=== PATIENT | female | born 1985 | race Two or more races ===

== ENCOUNTER → 2022-01-03 15:39 | Outpatient (BNVA) | payer MEDICAID, SELFPAY | PROVIDERS: Visit Provider Nurse Practitioner Family | DX: G43.009 Migraine without aura, not intractable, without status migrainosus (principal); M79.7 Fibromyalgia | CPT/HCPCS: 99212 ==

== ENCOUNTER → 2022-04-06 11:40 | Outpatient (BNVA) | payer MEDICAID, SELFPAY | PROVIDERS: Visit Provider Nurse Practitioner Family | DX: G43.009 Migraine without aura, not intractable, without status migrainosus (principal); R20.2 Paresthesia of skin; M48.061 Spinal stenosis, lumbar region without neurogenic claudication; G35 Multiple sclerosis; M79.7 Fibromyalgia; M54.50 Low back pain, unspecified | CPT/HCPCS: 99212 ==

== ENCOUNTER → 2022-07-04 10:59 | Outpatient (BNVA) | payer MEDICAID, SELFPAY | PROVIDERS: Visit Provider Nurse Practitioner Family | DX: M48.061 Spinal stenosis, lumbar region without neurogenic claudication (principal); G35 Multiple sclerosis; M79.7 Fibromyalgia ==

== ENCOUNTER 2024-03-25 09:29 | Outpatient (AMB) | payer OTHER, SELFPAY ==
--- NOTE | 2024-03-25 09:46 | MHC.OFFVIS ---
Vital Signs 03/25/24 09:48 Height 5 ft 4 in Weight 237 lb BMI 40.7 Intake Visit Reasons: Follow up Intake Note: Patient presents for follow up. Allergies dimethyl fumarate [From Tecfidera] Allergy (Mild, Verified 03/25/24 09:49) Hives copaxel Allergy (Mild, Uncoded 03/25/24 09:49) Hives Medication List - Last Reconciled 03/25/24 by DUY Up albuterol sulfate 90 mcg/actuation (ProAir HFA) 2 puffs inhalation QID fqaliecvut-ihelvavvoubfy-trkm 50-325-40 mg 1 cap PO Q4H PRN 30 days cladribine(multiple sclerosis) (Mavenclad (10 tablet pack)) 10 mg PO DAILY cladribine(multiple sclerosis) (Mavenclad (10 tablet pack)) 10 mg PO DAILY ergocalciferol (vitamin D2) 1,250 mcg PO QWEEK fremanezumab-vfrm (Ajovy) 225 mg (1.5 mL) subcut ONCE 30 days fremanezumab-vfrm (Ajovy) 675 mg subcut [id number] semaglutide (weight loss) (Wegovy) 0.5 mg subcut QWEEK tramadol 50 mg PO DAILY tramadol 100 mg (2 x 50 mg) PO TID PRN 30 days HPI Comments Details: 39-yr-old female presents for f/u visit of migraine, pain/spasticity in setting of MS. She has been gaining weight. She is now f/b weight management. She started Wegovy 6 wks ago- has not noticed any wt loss, but has nausea and food aversion. She states her TSH levels were elevated so her thyroid tx was adjusted several months ago. She has been dx'd w/ sleep apnea, and is using a CPAP machine. She is still f/b the [facility]- states her MS is stable on her current DMT. She is scheduled for f/u MRI. On review of recent labs through [facility] portal, note is made of h/o anemia, positive TAMARA 1:80. She is most concerned that she continues to have constant pain from her neck down through her whole body. Pt states she never heard from PS&S to have f/u visit. She states her pain and fatigue are limiting her ability to do her daily activities, some days can barely get OOB to go to the bathroom, other days she can get up, but sha can no longer do full shopping trips. Sometimes she can grab things, but other days she needs to use 2 hands to hold a cup. She can have swelling in her neck, arms, ankles. Has RUE muscle twitching. Her whole body is tender to the touch. Her low back pain is increasing as well- sometimes the pain is focal to the low back, other times radiates into the RLE. She is having increased leg spasms and more nocturnal leg cramps at night- since the weight gain. Her right sided weakness varies day to day. She states the Tramadol is not helping at night now- wonders if she needs something stronger. She is now more constipation. Has been having some bladder incontinence- has urge incontinence. Has been referred to urology- appt pending. Pt is having 2-3 milder migraines day per month since starting Ajovy. Now she is able to treat an attack w/ Ibuprofen or Tylenol and lays down x's 1-1.5 hrs. Baseline headache characteristics: a bifrontal and eye pain a/w seeing sparkles at times, photophobia, phonophobia, nausea, activity intolerance. She needs to lay down during the migraine attacks. Previous work-up: L-spine MRI w/o, 04/15/22 at [facility]: Worsened moderate endplate edema with disc degeneration at the L5-S1 level. Broad-based disc bulge with moderate foraminal encroachment mildly distorting the exiting L5 nerve roots, more so on the right side. No central canal stenosis. [facility] Medical History (Updated 03/25/24 @ 10:39 by DUY Up) Anemia Vitamin D deficiency Hypothyroidism Asthma Kidney stones HTN (hypertension) Fibromyalgia Multiple sclerosis Surgical History No pertinent past surgical history Family History Father HTN (hypertension) Kidney disease Arthritis Mother HTN (hypertension) Kidney disease Arthritis Fibromyalgia Social History Alcohol intake: current Alcohol intake frequency: other Patient Tobacco Use Status: Former Tobacco user Cigarettes Per Day: 3 e-Cigarette/Vaping Use: Currently Using Physical Exam Vital Signs: BMI result Body Mass Index 40.7 Const General: cooperative and no acute distress Orientation/consciousness: patient oriented x3 Resp Effort & Inspection: normal respiratory effort and able to speak in complete sentences Neuro Other: BUE MS 5/5, though Right hand grasp weaker than left. RLE 5-/5 LLE MS 5/5 Gait- slightly antalgic General: patient oriented x3 Cranial nerves: Yes CN's II-XII intact bilaterally Cognition (Neuro): normal cognition Deep tendon reflexes (DTR's): Right patellar reflex intensity grade: 2+ and Left patellar reflex intensity grade: 2+ Psych Appearance: grossly normal Mental Status: mental status grossly normal Speech and movement: Normal speech and movement present Affect: normal affect Attitude: cooperative Assessment & Plan Assessment & Plan (1) Migraine without aura: Code(s): G43.009 - Migraine without aura, not intractable, without status migrainosus Category: Medical (2) Neuroforaminal stenosis of lumbar spine: Code(s): M48.061 - Spinal stenosis, lumbar region without neurogenic claudication Category: Medical (3) Cervicalgia: Code(s): M54.2 - Cervicalgia Category: Medical (4) Paresthesia of right upper and lower extremity: Code(s): R20.2 - Paresthesia of skin Category: Medical (5) Multiple sclerosis: Code(s): G35 - Multiple sclerosis Category: Medical Plan For acute migraine treatment: Fioricet prn- pt requests we decrease montlhy quantity to 10 caps/30 days. Sumatriptan 50-100mg at onset of migraine, may repeat in 2 hours, max 4 tabs per week. ? For migraine prevention treatment: Continue Ajovy 225mg qc q month, as pt has had significant reduction in migraine burden w/out adverse effect/ She has previously tried: Gabapentin (d/c'd 03/03/2017), Amitriptyline (caused sleepiness, d/c'd 02/03/17), Topiramate (d/c'd 03/24/17)- all were ineffective. Migraine preventive tx contraindications: All BBs d/t dx of asthma. ? For low back pain w/ RLE paresthesias, neck pain, muscle cramps/spasms, fibromyalgia, body pains, weakness in setting of MS and h/o positive TAMARA.: May continue prn Tramadol 50mg- 2 tabs tid for now. Discussed that pt would better benefit from a more targeted tx of her symptoms, rather than to just change the Tramadol to something stronger . Start Magnesium 400mg qhs. Try taking Baclofen 5-10mg qhs scheduled. Check labs for common etiologies. BUE and BLE EMG/NCS F/u L-spine MRI w/o. Will request consults w/ pain management/systems development manager. Will request evaluation of positive TAMARA by rheumatology. For MS: f/u with [facility] as scheduled. Will follow-up upon review of above and patient to follow-up in clinic in 6 months or sooner prn. Orders: Orders TAMARA Reflex Titer and Pattern Today D64.9 - Anemia, unspecified, E03.9 - Hypothyroidism, unspecified, E55.9 - Vitamin D deficiency, unspecified, G35 - Multiple sclerosis, R20.2 - Paresthesia of skin Vitamin B12 and Folate Today D64.9 - Anemia, unspecified, E03.9 - Hypothyroidism, unspecified, E55.9 - Vitamin D deficiency, unspecified, G35 - Multiple sclerosis, R20.2 - Paresthesia of skin Vitamin D 25-OH (D2 and D3) Today D64.9 - Anemia, unspecified, E03.9 - Hypothyroidism, unspecified, E55.9 - Vitamin D deficiency, unspecified, G35 - Multiple sclerosis, R20.2 - Paresthesia of skin Erythrocyte Sedimentation Rate Today D64.9 - Anemia, unspecified, E03.9 - Hypothyroidism, unspecified, E55.9 - Vitamin D deficiency, unspecified, G35 - Multiple sclerosis, R20.2 - Paresthesia of skin Creatine Kinase Total Today D64.9 - Anemia, unspecified, E03.9 - Hypothyroidism, unspecified, E55.9 - Vitamin D deficiency, unspecified, G35 - Multiple sclerosis, R20.2 - Paresthesia of skin Magnesium Today D64.9 - Anemia, unspecified, E03.9 - Hypothyroidism, unspecified, E55.9 - Vitamin D deficiency, unspecified, G35 - Multiple sclerosis, R20.2 - Paresthesia of skin T4 Thyroxine Today D64.9 - Anemia, unspecified, E03.9 - Hypothyroidism, unspecified, E55.9 - Vitamin D deficiency, unspecified, G35 - Multiple sclerosis, R20.2 - Paresthesia of skin IRON PROFILE Today D64.9 - Anemia, unspecified, E03.9 - Hypothyroidism, unspecified, E55.9 - Vitamin D deficiency, unspecified, G35 - Multiple sclerosis, R20.2 - Paresthesia of skin NE nerve conduction velocity Today G35 - Multiple sclerosis, M48.061 - Spinal stenosis, lumbar region without neurogenic claudication, M54.2 - Cervicalgia, R20.2 - Paresthesia of skin MR lumbar spine wo con Today M48.061 - Spinal stenosis, lumbar region without neurogenic claudication, M54.50 - Low back pain, unspecified, R20.2 - Paresthesia of skin Rheumatoid Factor Today D64.9 - Anemia, unspecified, E03.9 - Hypothyroidism, unspecified, E55.9 - Vitamin D deficiency, unspecified, G35 - Multiple sclerosis, R20.2 - Paresthesia of skin TSH reflex Free T4 Today D64.9 - Anemia, unspecified, E03.9 - Hypothyroidism, unspecified, E55.9 - Vitamin D deficiency, unspecified, G35 - Multiple sclerosis, R20.2 - Paresthesia of skin Comprehensive Met. Panel Today D64.9 - Anemia, unspecified, E03.9 - Hypothyroidism, unspecified, E55.9 - Vitamin D deficiency, unspecified, G35 - Multiple sclerosis, R20.2 - Paresthesia of skin Complete Blood Count Auto Diff Today D64.9 - Anemia, unspecified, E03.9 - Hypothyroidism, unspecified, E55.9 - Vitamin D deficiency, unspecified, G35 - Multiple sclerosis, R20.2 - Paresthesia of skin CRP High Sensitivity Today D64.9 - Anemia, unspecified, E03.9 - Hypothyroidism, unspecified, E55.9 - Vitamin D deficiency, unspecified, G35 - Multiple sclerosis, R20.2 - Paresthesia of skin Homocysteine Today D64.9 - Anemia, unspecified, E03.9 - Hypothyroidism, unspecified, E55.9 - Vitamin D deficiency, unspecified, G35 - Multiple sclerosis, R20.2 - Paresthesia of skin Methylmalonic Acid Today D64.9 - Anemia, unspecified, E03.9 - Hypothyroidism, unspecified, E55.9 - Vitamin D deficiency, unspecified, G35 - Multiple sclerosis, R20.2 - Paresthesia of skin Ferritin Today D64.9 - Anemia, unspecified, E03.9 - Hypothyroidism, unspecified, E55.9 - Vitamin D deficiency, unspecified, G35 - Multiple sclerosis, R20.2 - Paresthesia of skin Hemoglobin A1c Today D64.9 - Anemia, unspecified, E03.9 - Hypothyroidism, unspecified, E55.9 - Vitamin D deficiency, unspecified, G35 - Multiple sclerosis, R20.2 - Paresthesia of skin NE electromyogram (EMG) Today G35 - Multiple sclerosis, M48.061 - Spinal stenosis, lumbar region without neurogenic claudication, M54.2 - Cervicalgia, R20.2 - Paresthesia of skin Referrals Rheumatology Referral G35 - Multiple sclerosis, M48.061 - Spinal stenosis, lumbar region without neurogenic claudication, R20.2 - Paresthesia of skin, R76.8 - Other specified abnormal immunological findings in serum Physiatry Referral G35 - Multiple sclerosis, M48.061 - Spinal stenosis, lumbar region without neurogenic claudication, R20.2 - Paresthesia of skin, R76.8 - Other specified abnormal immunological findings in serum Pain Management Referral G35 - Multiple sclerosis, M48.061 - Spinal stenosis, lumbar region without neurogenic claudication, R20.2 - Paresthesia of skin, R76.8 - Other specified abnormal immunological findings in serum Medications: New baclofen 5 - 10 mg (1 - 2 x 5 mg) PO BID 30 days 120 tabs 1RF magnesium oxide may hold for loose stools 400 mg PO BEDTIME 30 days 30 tabs 6RF Coding Level of Care Code Est Pt Level 4 (09731) Complex EM visit Add On G2211 Diagnoses Migraine without aura G43.009 Neuroforaminal stenosis of lumbar spine M48.061 Cervicalgia M54.2 Paresthesia of right upper and lower extremity R20.2 Multiple sclerosis G35
[2024-03-25 09:48] VITALS: BMI 40.7
== END 2024-03-25 10:50 | disposition home or self-care (01) ==
PROVIDERS: Visit Provider Nurse Practitioner Family
DX: G43.009 Migraine without aura, not intractable, without status migrainosus (principal); M48.061 Spinal stenosis, lumbar region without neurogenic claudication; M54.2 Cervicalgia; R20.2 Paresthesia of skin; G35 Multiple sclerosis
CPT/HCPCS: 99214; G2211

== ENCOUNTER → 2024-03-25 09:29 | Outpatient (BNVA) | payer OTHER, SELFPAY | PROVIDERS: Visit Provider Nurse Practitioner Family | DX: G43.009 Migraine without aura, not intractable, without status migrainosus (principal); G35 Multiple sclerosis; R20.2 Paresthesia of skin; M48.061 Spinal stenosis, lumbar region without neurogenic claudication; M54.2 Cervicalgia | CPT/HCPCS: 99212 ==

== ENCOUNTER 2024-05-10 18:45 | Outpatient (REF) | payer OTHER, SELFPAY | END 2024-05-10 18:46 | disposition home or self-care (01) | LOC: HO.MRI 18:45 | PROVIDERS: Visit Provider Nurse Practitioner Family | DX: R20.2 Paresthesia of skin (principal); M48.061 Spinal stenosis, lumbar region without neurogenic claudication; M54.50 Low back pain, unspecified | CPT/HCPCS: 72148 ==

== ENCOUNTER 2024-07-11 11:13 | Outpatient (AMB) | payer OTHER, SELFPAY ==
--- NOTE | 2024-07-11 11:23 | A.OFFVIS_ITS ---
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 Patient referred by Dr. Aguilar,[facility] [place] [facility]. Patient states he has MS, fibromyalgia, and a herniated disc. States she is having lower back pain, radiates down her legs, especially in her right buttock. States she feels tightness and deep sharp stabbing pain that is constant. States there are days where she is unable to get up from bed and do daily activities. She has tried P.T, injections, and bracing. MRI done at [facility] [place]. Allergies dimethyl fumarate [From Tecfidera] Allergy (Mild, Verified 07/11/24 11:29) Hives copaxel Allergy (Mild, Uncoded 07/11/24 11:29) Hives Medication List - Last Reconciled 07/11/24 by Claudia Macias MD albuterol sulfate 90 mcg/actuation (ProAir HFA) 2 puffs inhalation QID ergocalciferol (vitamin D2) 1,250 mcg PO QWEEK fremanezumab-vfrm (Ajovy) 225 mg (1.5 mL) subcut ONCE 30 days fremanezumab-vfrm (Ajovy) 675 mg (4.5 mL) subcut [id number] 90 days magnesium oxide 400 mg PO BEDTIME 30 days semaglutide (weight loss) (Wegovy) 0.5 mg subcut QWEEK tramadol 100 mg (2 x 50 mg) PO TID PRN 30 days tramadol 100 mg (2 x 50 mg) PO TID PRN 30 days HPI Comments Details: History of MS, fibromyalgia, urinary frequency. She says she gets spasticityi and gets treatment for that from same MS doctor at [facility]. Referred for back pain. She can state that the lower back pain is different from spasticity. Chronic lower back pain, radiating to right leg/knee/calf, not to the foot/toes. Spasms on calf (again different feeling that the spasticity). Treatment done so far: therapy - last was a year ago injection - 5 years ago at [facility], helped only for a few days She is scheduled for BUE/BLE EMG on 07/25 and she says this is for diffuse pain that affects arms and legs. She is stating that this is different from the lower back pain. 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 Patient was appropriately conversant and oriented. Good historian. MSK: No specific abnormalities found on inspection of the spine and all extremities. No pain with palpation over the lumbar area. Tender in right SI joint in right GT. Some tightness on upper trapezius bilateral. Neurological: Neurologic examination of the upper and lower extremities was nonfocal with intact sensation, muscle stretch reflexes and without focal motor deficits . Chandler?s negative bilaterally. Babinski was down going bilaterally. Clonus was negative. Gait is non-antalgic without loss of balance. No spasticity noted. No hyperreflexia. Results Reviewed Results Reviewed: I independently reviewed the results of the following: Lumbar MRI 05/10/2024 shows broad-based disc bulge L5-S1 with foraminal stenosis or being close to the L5 nerve roots, left worse than right. I reviewed records from the following: Similar findings from lumbar MRI done at [facility] in 2021 Notes from Neurology. Notes from [facility], she has been following there since 2020, diagnosed MS 2007. Assessment & Plan Assessment & Plan (1) Low back pain: Code(s): M54.50 - Low back pain, unspecified Category: Medical Qualifiers: Chronicity: chronic Back pain laterality: right Sciatica presence: with sciatica Sciatica laterality: sciatica of right side Qualified Code(s): M54.41 - Lumbago with sciatica, right side; G89.29 - Other chronic pain (2) Fibromyalgia: Code(s): M79.7 - Fibromyalgia Category: Medical (3) Multiple sclerosis: Code(s): G35 - Multiple sclerosis Category: Medical Plan Chronic lower back pain, right worse than left. MRI did show a disc bulge L5-S1 with foraminal stenosis, but worse on the left side. MRI results pretty much consistent since 2021. Exam shows tenderness over right SI joint and GT which may explain why her pain is mildly left side. She was history of fibromyalgia. Complaining of diffuse pain. History of a multiple sclerosis. No signs of spasticity on exam today. Would like to obtain notes from [facility] to see what benefit injections she has had. I think I am recommending an L5-S1 epidural injection if she would be agreeable. She said she might be agreeable to trying again injections. She is scheduled for upper and lower extremity EMG on 07/25/2024. I have low suspicion though that I will see any findings for neuropathy. Her symptoms are more consistent with fibromyalgia. Assessment and plan discussed with patient, and patient was agreeable. All questions were answered thoroughly. Total of 45 minutes spent today including chart review, results review, history taking, physical examination, discussion of assessment and plan, and coordination of care. Claudia Macias MD, ANASTASIYA Board Certified, [place] Board of Physical Medicine and Rehabilitation (ABPMR) Board Certified, [place] Board of Electrodiagnostic Medicine (ABEM) Coding Level of Care Code New Pt Level 4 (34179) Diagnoses Chronic right-sided low back pain with right-sided sciatica M54.41; G89.29 Chronicity: chronic Back pain laterality: right Sciatica presence: with sciatica Sciatica laterality: sciatica of right side Fibromyalgia M79.7 Multiple sclerosis G35
== END 2024-07-11 11:49 | disposition home or self-care (01) ==
PROVIDERS: Visit Provider Physical Medicine & Rehabilitation
DX: M54.41 Lumbago with sciatica, right side (principal); G89.29 Other chronic pain; M79.7 Fibromyalgia; G35 Multiple sclerosis
CPT/HCPCS: 99204

== ENCOUNTER → 2024-07-11 11:13 | Outpatient (BNVA) | payer OTHER, SELFPAY | PROVIDERS: Visit Provider Physical Medicine & Rehabilitation | DX: M54.41 Lumbago with sciatica, right side (principal); G89.29 Other chronic pain; M79.7 Fibromyalgia; G35 Multiple sclerosis | CPT/HCPCS: 99202 ==

== ENCOUNTER 2024-07-25 12:55 | Outpatient (REF) | payer OTHER, SELFPAY ==
--- NOTE | 2024-07-25 13:03 | EMG_ITS ---
Chief complaint: History of MS and fibromyalgia, complaining of paresthesias hands and feet Reason for referral: Evaluate for neuropathy Referred by: Yue Aguilar NP Procedure done: Bilateral upper extremities and lower extremity NCS/EMG Precautions and/or limitations: None The limb temperature was monitored continuously and remained between 32-36 degrees C during the performance of the NCS. Nerve Conduction Studies Anti Sensory Summary Table ?Stim Site NR Onset (ms) Norm Onset (ms) Peak (ms) Norm Peak (ms) O-P Amp (?V) Norm O-P Amp Site1 Site2 Delta-0 (ms) Dist (cm) Gen (m/s) Norm Gen (m/s) Left Median Anti Sensory (2nd Digit) Wrist ? 2.3 2.8 <3.6 51.8 >10 Wrist 2nd Digit 2.3 14.0 61 Right Median Anti Sensory (2nd Digit) Wrist ? 2.5 3.0 <3.6 36.9 >10 Wrist 2nd Digit 2.5 14.0 56 Left Sural Anti Sensory (Lat Mall) Calf ? 2.7 3.1 <4.0 8.5 >5.0 Calf Lat Mall 2.7 14.0 52 Right Sural Anti Sensory (Lat Mall) Calf ? 1.0 3.1 <4.0 6.3 >5.0 Calf Lat Mall 1.0 14.0 140 Left Ulnar Anti Sensory (5th Digit) Wrist ? 1.6 2.5 <3.7 39.4 >15.0 Wrist 5th Digit 1.6 14.0 88 Right Ulnar Anti Sensory (5th Digit) Wrist ? 1.2 2.5 <3.7 19.8 >15.0 Wrist 5th Digit 1.2 14.0 117 Motor Summary Table ?Stim Site NR Onset (ms) Norm Onset (ms) O-P Amp (mV) Norm O-P Amp iAmp (mV) Amp (1st) (%) Site1 Site2 Delta-0 (ms) Dist (cm) Gen (m/s) Norm Gen (m/s) Left Median Motor (Abd Poll Brev) Wrist ? 3.0 <3.9 9.1 >4.5 11.0 100.0 Elbow Wrist 3.4 19.0 56 >45 Elbow ? 6.4 9.0 10.8 98.9 Right Median Motor (Abd Poll Brev) Wrist ? 3.1 <3.9 13.2 >4.5 15.7 100.0 Elbow Wrist 3.5 21.0 60 >45 Elbow ? 6.6 12.7 15.3 96.2 Right Peroneal Motor (Ext Dig Brev) Ankle ? 3.8 <4.0 5.1 >2.5 6.6 100.0 Ankle Ext Dig Brev 3.8 0.0 B Fib ? 9.8 6.5 8.6 127.5 B Fib Ankle 6.0 32.0 53 >40 Poplt ? 10.6 8.7 11.8 170.6 Poplt B Fib 0.8 4.0 50 >40 Left Tibial Motor (Abd Alonso Brev) Ankle ? 3.8 <5 9.1 >2.5 14.2 100.0 Ankle Abd Alonso Brev 3.8 0.0 Knee ? 11.7 4.7 6.6 51.6 Knee Ankle 7.9 37.0 47 >40 Right Tibial Motor (Abd Alonso Brev) Ankle ? 3.4 <5 9.0 >2.5 13.8 100.0 Ankle Abd Alonso Brev 3.4 0.0 Knee ? 10.8 6.5 9.0 72.2 Knee Ankle 7.4 43.0 58 >40 Left Ulnar Motor (Abd Dig Minimi) Wrist ? 2.3 <3.0 10.3 >5 11.7 100.0 B Elbow Wrist 2.9 19.0 66 >45 B Elbow ? 5.2 9.7 11.3 94.2 A Elbow B Elbow 1.4 10.0 71 >45 A Elbow ? 6.6 7.7 9.1 74.8 Right Ulnar Motor (Abd Dig Minimi) Wrist ? 2.3 <3.0 7.7 >5 9.1 100.0 B Elbow Wrist 3.3 19.0 58 >45 B Elbow ? 5.6 7.4 8.7 96.1 A Elbow B Elbow 1.0 10.0 100 >45 A Elbow ? 6.6 6.8 8.1 88.3 EMG ?Side Muscle Nerve Root Ins Act Fibs Psw Amp Dur Poly Recrt Int Pat Comment Right 1stDorInt Ulnar C8-T1 Nml Nml Nml Nml Nml 0 Nml Complete Right FlexCarRad Median C6-7 Nml Nml Nml Nml Nml 0 Nml Complete Right Biceps Musculocut C5-6 Nml Nml Nml Nml Nml 0 Nml Complete Right Triceps Radial C6-7-8 Nml Nml Nml Nml Nml 0 Nml Complete Right Deltoid Axillary C5-6 Nml Nml Nml Nml Nml 0 Nml Complete Right AbdHallucis MedPlantar S1-2 Nml Nml Nml Nml Nml 0 Nml Complete Right AntTibialis Dp Br Peron L4-5 Nml Nml Nml Nml Nml 0 Nml Complete Right PostTibialis Tibial L5, S1 Nml Nml Nml Nml Nml 0 Nml Complete Right MedGastroc Tibial S1-2 Nml Nml Nml Nml Nml 0 Nml Complete Right VastusMed Femoral L2-4 Nml Nml Nml Nml Nml 0 Nml Complete FINDINGS: All motor and sensory nerves tested showed normal latencies, amplitudes and conduction velocities. Concentric needle EMG was performed in selected muscles of the right upper extremity and lower extremity. Study did not reveal signs of electric abnormalities as shown in the table above. IMPRESSION: 1. This is a normal study. 2. There is no electrodiagnostic evidence for median neuropathy, ulnar neuropathy, brachial plexopathy, cervical radiculopathy, peroneal neuropathy, tibial neuropathy, lumbosacral plexopathy, lumbar radiculopathy, or peripheral neuropathy. CLINICAL COMMENT: Would recommend referral to pain management. Thank you for your kind referral. Claudia Macias MD, ANASTASIYA Board Certified, [place] Board of Physical Medicine and Rehabilitation (ABPMR) Board Certified, [place] Board of Electrodiagnostic Medicine (ABEM) CODIN [id number] x 2 MTDD
== END 2024-07-25 12:56 | disposition home or self-care (01) ==
LOC: HO.NEURO 12:55
PROVIDERS: Visit Provider Nurse Practitioner Family
DX: M48.061 Spinal stenosis, lumbar region without neurogenic claudication (principal); M54.2 Cervicalgia; R20.2 Paresthesia of skin; G35 Multiple sclerosis
CPT/HCPCS: 95886; 95913

== ENCOUNTER 2024-08-14 13:22 | Outpatient (AMB) | payer OTHER, SELFPAY ==
[2024-08-14 13:38] VITALS: BMI 40.7
--- NOTE | 2024-08-14 13:38 | A.OFFVIS_ITS ---
Vital Signs 08/14/24 13:38 Height 5 ft 4 in Weight 237 lb BMI 40.7 Intake Visit Reasons: Follow up Intake Note: Patient presents follow up Migraine. patient no-showed Rheum/pain appointments. Psych was seen 07/11. MRI/EMG in chart Allergies dimethyl fumarate [From Tecfidera] Allergy (Mild, Verified 08/14/24 13:43) Hives copaxel Allergy (Mild, Uncoded 07/11/24 11:29) Hives Medication List - Last Reconciled 08/14/24 by DUY Up albuterol sulfate 90 mcg/actuation (ProAir HFA) 2 puffs inhalation QID ergocalciferol (vitamin D2) 1,250 mcg PO QWEEK fremanezumab-vfrm (Ajovy) 225 mg (1.5 mL) subcut ONCE 30 days fremanezumab-vfrm (Ajovy) 675 mg (4.5 mL) subcut [id number] 90 days magnesium oxide 400 mg PO BEDTIME 30 days semaglutide (weight loss) (Wegovy) 0.5 mg subcut QWEEK tramadol 100 mg (2 x 50 mg) PO TID PRN 30 days tramadol 100 mg (2 x 50 mg) PO TID PRN 30 days HPI Comments Details: 39-yr-old female presents for f/u visit of migraine, pain/spasticity in setting of MS. PMH notable for NICK on CPAP, anemia, fibromyalgia. She is still f/b the [facility]- states her MS is stable on her current DMT. Denies any clear signs of MS relapse, though has good days and bad days where she may have exacerbation blurry vision or weakness. She states her daughters are undergoing evaluation for pediatric MS. She states she is due for for f/u MRI. Since last visit, patient underwent: 05/10/2024 L-spine MRI without contrast showed L5-S1 diffuse disc bulge and bilateral facet arthrosis resulting in mild to moderate left and mild right neuroforaminal narrowing with the disc abutting the exiting L5 nerve roots bilaterally without significant spinal canal stenosis. L4-5 bilateral facet arthrosis without significant spinal canal or foraminal narrowing. 07/25/2024, bilateral upper and lower extremity EMG/NCS, which was normal. She did have recent physiatry consult, who felt that her symptoms were likely consistent with fibromyalgia, and suggested patient had follow-up with pain management. She continues to have constant pain from her neck down through her whole body. Pt states she never heard from PS&S to have f/u visit. She states her pain and fatigue can limit her ability to do her daily ac tivities. Sometimes she can grab things, but other days she needs to use 2 hands to hold a cup. She can have swelling in her neck, arms, ankles. Has RUE muscle twitching. Has chronic low back pain is increasing as well- sometimes the pain is focal to the low back, other times radiates into the RLE. She continues to have leg spasms and more nocturnal leg cramps at night- since the weight gain. Her right sided weakness varies day to day. She states the Tramadol anymore.. Since last visit, patient had not been able to take her Ajovy due to need for new Prior authorization, and thus had a increase in her migraine attacks, which again were occurring daily. She resumed Ajovy last week, feels that it is starting to help already. Baseline headache characteristics: a bifrontal and eye pain a/w seeing sparkles at times, photophobia, phonophobia, nausea, activity intolerance. She needs to lay down during the migraine attacks. Previous work-up: L-spine MRI w/o, 04/15/22 at [facility]: Worsened moderate endplate edema with disc degeneration at the L5-S1 level. Broad-based disc bulge with moderate foraminal encroachment mildly distorting the exiting L5 nerve roots, more so on the right side. No central canal stenosis. 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 Physical Exam Vital Signs: BMI result Body Mass Index 40.7 Const General: cooperative and no acute distress Orientation/consciousness: patient oriented x3 Resp Effort & Inspection: normal respiratory effort and able to speak in complete sentences Neuro Other: BUE MS 5/5, RLE MS 5/5 LLE MS 5/5 Gait- slightly antalgic General: patient oriented x3 Cranial nerves: Yes CN's II-XII intact bilaterally Cognition (Neuro): normal cognition Deep tendon reflexes (DTR's): Right patellar reflex intensity grade: 1+ and Left patellar reflex intensity grade: 2+ Psych Appearance: grossly normal Mental Status: mental status grossly normal Speech and movement: Normal speech and movement present Affect: normal affect Attitude: cooperative Assessment & Plan Assessment & Plan (1) Migraine without aura: Code(s): G43.009 - Migraine without aura, not intractable, without status migrainosus Category: Medical (2) Neuroforaminal stenosis of lumbar spine: Code(s): M48.061 - Spinal stenosis, lumbar region without neurogenic claudication Category: Medical (3) Cervicalgia: Code(s): M54.2 - Cervicalgia Category: Medical (4) Paresthesia of right upper and lower extremity: Code(s): R20.2 - Paresthesia of skin Category: Medical (5) Multiple sclerosis: Code(s): G35 - Multiple sclerosis Category: Medical (6) Low back pain: Code(s): M54.50 - Low back pain, unspecified Category: Medical Qualifiers: Chronicity: chronic Back pain laterality: right Sciatica presence: with sciatica Sciatica laterality: sciatica of right side Qualified Code(s): M54.41 - Lumbago with sciatica, right side; G89.29 - Other chronic pain Plan For acute migraine treatment: Fioricet prn- pt requests we decrease montlhy quantity to 10 caps/30 days. Sumatriptan 50-100mg at onset of migraine, may repeat in 2 hours, max 4 tabs per week. ? For migraine prevention treatment: Continue Ajovy 225mg qc q month, She has previously tried: Gabapentin (d/c'd 03/03/2017), Amitriptyline (caused sleepiness, d/c'd 02/03/17), Topiramate (d/c'd 03/24/17)- all were ineffective. Migraine preventive tx contraindications: All BBs d/t dx of asthma. ? For low back pain w/ RLE paresthesias, neck pain, muscle cramps/spasms, fibromyalgia, body pains, weakness in setting of MS and h/o positive ATMARA.: May continue prn Tramadol 50mg- 2 tabs tid for now. Discussed that pt would better benefit from a more targeted tx of her symptoms, rather than to just change the Tramadol to something stronger . Magnesium 400mg qhs. Baclofen 5-10mg qhs scheduled. BUE and BLE EMG/NCS- normal F/u L-spine MRI w/o- stable Concur with pain management consult. PT eval and treat including myofascial release and dry needling if indicated- patient request in [place] close to her home. Labs as previously ordered. We will check on status of request for rheumatology consult for evaluation of positive TAMARA.. For MS: f/u with [facility] as scheduled. Will follow-up upon review of above and patient to follow-up in clinic in 6 months or sooner prn. Orders: Orders PT Evaluation and Treatment Today G35 - Multiple sclerosis, G89.29 - Other chronic pain, M48.061 - Spinal stenosis, lumbar region without neurogenic claudication, M54.41 - Lumbago with sciatica, right side, R20.2 - Paresthesia of skin Medications: Discontinued fremanezumab-vfrm (Ajovy) administer 225 mg injection sc q month Discontinued Reason: Duplicate 225 mg (1.5 mL) subcut ONCE 30 days 1.5 mL 6RF Coding Level of Care Code Est Pt Level 4 (94412) Diagnoses Migraine without aura G43.009 Neuroforaminal stenosis of lumbar spine M48.061 Cervicalgia M54.2 Paresthesia of right upper and lower extremity R20.2 Multiple sclerosis G35 Chronic right-sided low back pain with right-sided sciatica M54.41; G89.29 Chronicity: chronic Back pain laterality: right Sciatica presence: with sciatica Sciatica laterality: sciatica of right side
--- OUTSIDE RECORDS SUMMARY | 2024-08-14 13:39 | XMS_ITS | Encounter Summary ---
Demographics Address [address] [place] [address] [address] [place] [address] Home Phone Mobile Phone Email Address Preferred Language en Marital Status Single Caodaism Affiliation Unknown Race Unknown Ethnic Group or Author Organization [facility] Address [address] [place] [address] Care Team Providers Care Validation Consultant Name Role Phone Ria Mejía MD Primary Care Provider Reason for Visit * Reason Onset Date Comments prior auth 07/31/2024 Encounter Details Date Type Department Care Team (Late Contact Info) Description 07/31/2024 Telephone Bariatric Surgery - [place] [address] [facility] [address] [place] [phone] Shiloh Ziegler PA [address] [facility] [address] [place] [address] prior auth Social History Tobacco Use Types Packs/Day Years Used Date Smoking Tobacco: Every Day Smokeless Tobacco: Never Comments Unknown Sex and Gender Information Value Date Recorded Sex Assigned at Not on file Legal Sex Female 6:15 AM EST Gender Identity Not on file Sexual Orientation Not on file documented as of this encounter Progress Notes * Lorena Burt MA - 07/31/2024 2:04 PM EST Pt needs a prior auth started for her victor m. documented in this encounter Plan of Treatment Upcoming Encounters Date Type Department Care Team (Late Contact Info) Description 08/16/2024 11:00 AM EST Office Visit [facility] [place] [address] [place] [phone] Micha Allen MD [address] [facility] [address] [place] [address] 10/10/2024 8:00 AM EDT Office Visit Bariatric Surgery - [place] [address] [facility] [address] [place] [phone] Shiloh Ziegler PA [address] [facility] [address] [place] [address] documented as of this encounter Visit Diagnoses Not on filedocumented in this encounter Care Teams Validation Consultant Relationship Specialty Start Date End Date Ria Mejía MD [address] [place] [phone] PCP - General 12/27/23 documented as of this encounter
--- OUTSIDE RECORDS SUMMARY | 2024-08-14 13:39 | XMS_ITS | Clinical Summary ---
Author Organization [address] [place] [address] Address [address] [place] [address] Phone Care Team Providers Care Feather Maker Name Role Phone Ria Mejía MD Primary Care Provider Allergies Active Allergy Reactions Criticality Noted Date Comments Dimethyl Fumarate Hives,Rash Low 05/13/2021 Glatiramer Rash Low 05/13/2021 Medications albuterol HFA (PROAIR HFA ; PROVENTIL HFA ; VENTOLIN HFA) 90 mcg/actuation inhaler Inhale 2 puffs by mouth every 6 hours as needed. Active ergocalciferol (VITAMIN D-2) 1,250 mcg (50,000 unit) capsule Take 1 capsule (50,000 Units total) by mouth 1 (one) time per week. 4 Active fremanezumab-vf rm (Ajovy Autoinjector) 225 mg/1.5 mL auto-injector Inject under the skin. Active traMADoL (ULTRAM) 50 mg tablet Take 50 mg by mouth continuous prn for pain. Active LORazepam (ATIVAN) 0.5 mg tablet Si p.o. 1 hour prior to MRI, may repeat 1 at time of MRI if needed Active semaglutide (Wegovy) 1 mg/0.5 mL injection pen Inject 1 mg under the skin every 7 (seven) days for 28 days. 2 mL 4 07/23/19 25 Active Problems Problem Noted Date Diagnosed Date Fibromyalgia 02/21/2021 Encounters Date Type Department Care Team Description 07/31/2024 Telephone Bariatric Surgery - [place] [address] [facility] [address] [place] [address] Shiloh Ziegler PA prior auth 06/24/2024 Telephone Bariatric Surgery - [place] [address] [facility] [address] [place] [address] Shiloh Ziegler PA Medication Problem (Refill) 05/16/2024 11:00 AM EST Office Visit [facility] [address] [facility] [address] [place] [address] Laura Rogers PA Multiple sclerosis (CMS/HCC) (Primary Dx) from Last 3 Months Medical History Medical History Date Comments MS (multiple sclerosis) (CMS/HCC) DX:MS (multiple sclerosis) (HCC) Family History Medical History Relation Name Comments Diabetes Brother Diabetes Father Hypertension Father Diabetes Mother Hypertension Mother Colon cancer Mother's Sister Multiple sclerosis Neg Hx Relation Name Status Comments Brother Father Mother Mother's Sister Social History Tobacco Use Types Packs/Day Years Used Date Smoking Tobacco: Every Day Smokeless Tobacco: Never Tobacco Cessation:Ready to Q uit: Not Asked; Counseling Given: Not Answered Comments Unknown Sex and Gender Information Value Date Recorded Sex Assigned at Not on file Legal Sex Female 6:15 AM EST Gender Identity Not on file Sexual Orientation Not on file Obstetrics History Last Filed Vital Signs Vital Sign Reading Time Taken Comments Blood Pressure 120/85 05/16/2024 11:53 AM EST Pulse 86 05/16/2024 11:53 AM EST Temperature 35.9 ??C (96.7 ??F) 05/16/2024 11:[address] Respiratory Rate - - Oxygen Saturation 97% 05/16/2024 11:53 AM EST Inhaled Oxygen Concentration - - Weight 108 kg (238 lb) 01/25/2024 1:41 PM EDT Height 162.6 cm (5' 4 ) 01/25/2024 1:41 PM EDT Body Mass Index 40.85 01/25/2024 1:41 PM EDT Plan of Treatment Upcoming Encounters Date Type Department Care Team (Late st Contact Info) Description 08/16/2024 11:00 AM EST Office Visit [facility] [address] [facility] [address] [place] [phone] Micha Allen MD [address] [facility] 150 [place] [phone] 10/10/2024 8:00 AM EDT Office Visit Bariatric Surgery - [place] 175 [facility] [address] [place] [phone] Shiloh Ziegler PA [address] [facility] [address] [place] [address] Health Maintenance Due Date Last Done Comments Hepatitis B Vaccines (1 of 3 - 19+ 3-dose series) 2005 Pneumococcal Vaccine: Pediatrics (0 to 5 Years) and At-Risk Patients (6 to 64 Years) (1 of 2 - PCV) 2005 Cervical Cancer Screening: P ap Smear 2007 HPV Vaccines (3 - 3-dose series) 02/22/2010 11/30/2009, 05/25/2009 Cholesterol Screening (Lipid Panel) 06/03/2022 Depression Screening 06/03/2022 HIV Screening 06/03/2022 Hepatitis C Screening 06/03/2022 Social Influencers of Health Screening 06/03/2022 COVID-19 Vaccine (1 - 2023-2 5 season) 2024 Influenza Vaccine (#1) 2024 9, 03/27/2017, 08/23/2011 Hypertension/CHF/CAD Annual BMP Blood Test 05/16/2024 DTaP,Tdap,and Td Vaccines (4 - Td or Tdap) 02/12/2029 02/12/2019, 08/08/2017, 04/12/2012 HIB Vaccines Aged Out No longer eligi ble based on patient's age to complete this topic Hepatitis A Vaccines Aged Out No long er eligible based on patient's age to complete this topic IPV Vaccines Aged Out No longer eligi ble based on patient's age to complete this topic MMR Vaccines Aged Out No longer eligi ble based on patient's age to complete this topic Meningococcal ACWY Vaccine Aged Out N o longer eligible based on patient's age to complete this topic Meningococcal B Vacine Aged Out No lo nger eligible based on patient's age to complete this topic RSV Immunization Patients Under 20 months Aged Out No longer eligible b ased on patient's age to complete this topic Varicella Vaccines Aged Out No longer eligible based on patient's age to complete this topic Procedures Procedure Name Priority Date/Time Associated Diagnosis Comments LARSON URINE CULTURE TUBE Routine 05/16/2024 12:33 PM EST Multiple sclerosis (CMS/HCC) URINALYSIS WITH REFLEX MICROSCOPIC AND CULTURE Routine 05/16/2024 12:33 PM EST Multiple sclerosis (CMS/HCC) URINALYSIS WITH REFLEX MICROSCOPIC AND CULTURE Routine 05/16/2024 12:33 PM EST Multiple sclerosis (CMS/HCC) CULTURE URINE Routine 05/16/2024 12:33 PM EST Multiple sclerosis (CMS/HCC) from Last 3 Months Results * (ABNORMAL) Urinalysis with reflex microscopic and culture (05/16/2024 12:33 PM EST) Specific [place] Urine 1.023 1.003 - 1.030 LAB URINALYSIS - AUTOMATED METHOD 05/16/2024 4:53 PM [facility] pH, Urine 6.5 5.0 - 8.0 pH LAB URINALYSIS - AUTOMATED METHOD 05/16/2024 4:53 PM [facility] Leukocytes, Urine Small(A) Negative LAB URINALYSIS - AUTOMATED METHOD 05/16/2024 4:53 PM [facility] Nitrite, Urine Positive(A) Negative LAB URINALYSIS - AUTOMATED METHOD 05/16/2024 4:53 PM [facility] Protein, Urine 30(A) <=Trace mg/dL LAB URINALYSIS - AUTOMATED METHOD 05/16/2024 4:53 PM [facility] Glucose, Urine Negative Negative mg/dL LAB URINALYSIS - AUTOMATED METHOD 05/16/2024 4:53 PM [facility] Ketones, Urine Trace(A) Negative mg/dL LAB URINALYSIS - AUTOMATED METHOD 05/16/2024 4:53 PM [facility] Urobilinogen , Urine 1.0 0.2 - 1.0 mg/dL LAB URINALYSIS - AUTOMATED METHOD 05/16/2024 4:53 PM [facility] Bilirubin, Urine Negative Negative LAB URINALYSIS - AUTOMATED METHOD 05/16/2024 4:53 PM [facility] Blood, Urine Small(A) Negative LAB URINALYSIS - AUTOMATED METHOD 05/16/2024 4:53 PM [facility] RBC, Urine 20.1(H) 0 - 4 /HPF LAB URINALYSIS - AUTOMATED METHOD 05/16/2024 4:53 PM [facility] WBC, Urine 6.7(H) 0 - 4 /HPF LAB URINALYSIS - AUTOMATED METHOD 05/16/2024 4:53 PM [facility] Squamous Epithelial, Urine >100(H) 0 - 60 /LPF LAB URINALYSIS - AUTOMATED METHOD 05/16/2024 4:53 PM [facility] Bacteria, Urine Many(A) Negative /HPF LAB URINALYSIS - AUTOMATED METHOD 05/16/2024 4:53 PM [facility] Hyaline Casts, Urine 6.3(H) 0 - 3 /LPF LAB URINALYSIS - AUTOMATED METHOD 05/16/2024 4:53 PM [facility] Urine Urine specimen obtained by clean catch procedure / Unknown Non-blood Collection / Unknown 05/16/2024 12:33 PM EST 05/16/2024 12:39 PM EST us Laura KEYS LAB URINE ORDERABLES Final R esult [facility] [address] [place] [address], * Larson urine culture tube (05/16/2024 12:33 PM EST) Extra Tube Hold for add-ons. 05/16/2024 3:02 PM EST [facility] Comment:Auto resulted. Urine Urine specimen obtained by clean catch procedure / Unknown Non-blood Collection / Unknown 05/16/2024 12:33 PM EST 05/16/2024 12:39 PM EST Laura KEYS LAB URINE ORDERABLES Final R esult [facility] [address] [place] [address], [place] [phone] * (ABNORMAL) Culture urine (05/16/2024 12:33 PM EST) Culture, Urine 50,000-100,000 CFU/mL Escherichia coli(A) FRANCESCA 05/18/2024 10:05 AM EST [facility] Comment: This is an edited result. Previous organism was Gram negative bacilli on 05/17/2024 at 1311 EST. Urine Urine specimen obtained by clean catch procedure / Unknown Non-blood Collection / Unknown 05/16/2024 12:33 PM EST 05/16/2024 4:53 PM EST Narrative Organism Antibiotic Method Susceptibility Escherichia coli Amoxicillin/Clavulanate FRANCESCA <=2 ug/ml: Susceptible Escherichia coli Ampicillin/Sulbactam FRANCESCA <=2 ug/ml: Susceptible Escherichia coli Piperacillin/Tazobactam FRANCESCA <=4 ug/ml: Susceptible Escherichia coli Cefazolin (Urine) FRANCESCA <=1 ug/ml: Susceptible Escherichia coli Cefoxitin FRANCESCA <=4 ug/ml: Susceptible Escherichia coli Ceftazidime FRANCESCA <=0.5 ug/ml: Susceptible Escherichia coli Ceftriaxone FRANCESCA <=0.25 ug/ml: Susceptible Escherichia coli Cefepime FRANCESCA <=0.12 ug/ml: Susceptible Escherichia coli Meropenem FRANCESCA <=0.25 ug/ml: Susceptible Escherichia coli Amikacin FRANCESCA 4 ug/ml: Susceptible Escherichia coli Gentamicin FRANCESCA <=1 ug/ml: Susceptible Escherichia coli Ciprofloxacin FRANCESCA <=0.06 ug/ml: Susceptible Escherichia coli Levofloxacin FRANCESCA <=0.12 ug/ml: Susceptible Escherichia coli Nitrofurantoin FRANCESCA <=16 ug/ml: Susceptible Escherichia coli Trimethoprim/Sulfamethoxazole FRANCESCA <=20 ug/ml: Susceptible Laura KEYS LAB MICROBIOLOGY - GENERAL O RDERABLES Final Result [facility] [address] [place] [address], [place] [phone] from Last 3 Months Insurance [facility] Care Teams Feather Maker Relationship Specialty Start Date End Date Ria Mejía MD [address] [place] [phone] PCP - General 12/27/23
--- OUTSIDE RECORDS SUMMARY | 2024-08-14 13:39 | XMS_ITS | Clinical Summary ---
Author Organization [facility] Address [address] [place] [address] Care Team Providers Care Pathology Technologist Name Role Phone Amaris Chandrakant Primary Care Provider [phone] Allergies Active Allergy Reactions Criticality Noted Date Comments Glatiramer Rash Low 05/13/2021 Dimethyl Fumarate Hives,Rash Low 05/13/2021 Medications Medication Sig Dispensed Refills Start Date End Date Status traMADol (ULTRAM) 50 MG tablet Take 50 mg by mouth continuous prn for pain. 0 Active albuterol 108 (90 Base) MCG/ACT inhaler Inhale 2 puffs into the lungs every 6 (six) hours as needed for wheezing. 0 Active Cladribine, 10 Tabs, (Mavenclad, 10 Tabs,) 10 MG TBPK Take by mouth. 0 Active Fremanezumab-vfrm (Ajovy) 225 MG/1.5ML SOAJ Inject under the skin. 0 Active methylPREDNISolone (Medrol) 4 MG tablet follow package directions 21 tablet 0 01/23/2024 Active LORazepam (ATIVAN) 0.5 MG tablet 1 p.o. 1 hour prior to MRI, may repeat 1 at time of MRI if needed 5 tablet 0 01/25/2024 Active ergocalciferol (VITAMIN D2) capsule 84035 units TAKE 1 CAPSULE BY MOUTH ONE TIME PER WEEK 12 capsule 0 04/23/2024 Active Active Problems Problem Noted Date Diagnosed Date Fibromyalgia 02/21/2021 Family History Medical History Relation Name Comments Diabetes Brother Diabetes Father Hypertension Father Colon cancer Maternal Aunt Diabetes Mother Hypertension Mother Multiple sclerosis Neg Hx Relation Name Status Comments Brother Father Maternal Aunt Mother Social History Tobacco Use Types Packs/Day Years Used Date Smoking Tobacco: Every Day Smokeless Tobacco: Never Tobacco Cessation:Ready to Q uit: Not Asked; Counseling Given: Not Answered Sex and Gender Information Value Date Recorded Sex Assigned at Female 12/30/2020 3:04 PM EDT Gender Identity Not on file Sexual Orientation Not on file Job Start Date Occupation Industry Not on file Not on file Not on file Last Filed Vital Signs Vital Sign Reading Time Taken Comments Blood Pressure 120/84 01/23/2024 3:04 PM EDT Pulse 79 01/23/2024 3:04 PM EDT Temperature 35.9 ??C (96.7 ??F) 01/23/2024 3:04 PM ED T Respiratory Rate 16 01/17/2023 1:35 PM EDT Oxygen Saturation 97% 01/23/2024 3:04 PM EDT Inhaled Oxygen Concentration - - Weight 105.2 kg (232 lb) 01/23/2024 3:04 PM EDT Height 162.6 cm (5' 4 ) 01/23/2024 3:04 PM EDT Body Mass Index 39.82 01/23/2024 3:04 PM EDT Plan of Treatment Health Maintenance Due Date Last Done Comments Hepatitis B Vaccines (1 of 3 - 3-dose series) 1986 Hepatitis C Screening 1986 COVID-19 Vaccine (#1) 1986 Pneumococcal Vaccine (1 of 2 - PCV) 02/01/1992 Depression Screening 1998 BMI Counseling 02/01/2004 Preventative Health Evaluation 02/01/2004 Tobacco Cessation Counseling 02/01/2004 Cervical Cancer Screening (Pap Smear) 2007 Influenza Vaccine (#1) 2024 9, 03/27/2017, 03/27/2017, Additional history exists DTap / Tdap / Td (4 - Td or Tdap) 02/12/2029 02/12/2019, 08/08/2017, 04/12/2012 RSV Ped < 20 months Aged Out No longe r eligible based on patient's age to complete this topic Care Teams Pathology Technologist Relationship Specialty Start Date End Date Chandrakant Glez [address] [place] [address] PCP - General Family Medicine 05/13/21
== END 2024-08-14 14:18 | disposition home or self-care (01) ==
PROVIDERS: Visit Provider Nurse Practitioner Family
DX: G43.009 Migraine without aura, not intractable, without status migrainosus (principal); M48.061 Spinal stenosis, lumbar region without neurogenic claudication; M54.2 Cervicalgia; R20.2 Paresthesia of skin; G35 Multiple sclerosis; M54.41 Lumbago with sciatica, right side; G89.29 Other chronic pain
CPT/HCPCS: 99214

== ENCOUNTER → 2024-08-14 13:22 | Outpatient (BNVA) | payer OTHER, SELFPAY | PROVIDERS: Visit Provider Nurse Practitioner Family | DX: G43.009 Migraine without aura, not intractable, without status migrainosus (principal); G47.33 Obstructive sleep apnea (adult) (pediatric); M54.2 Cervicalgia; M48.061 Spinal stenosis, lumbar region without neurogenic claudication; R20.2 Paresthesia of skin; G35 Multiple sclerosis; M54.41 Lumbago with sciatica, right side; G89.29 Other chronic pain; Z99.89 Dependence on other enabling machines and devices | CPT/HCPCS: 99212 ==

== ENCOUNTER 2025-02-18 10:59 | Outpatient (AMB) | payer OTHER, SELFPAY ==
--- NOTE | 2025-02-18 11:00 | A.OFFVIS_ITS ---
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 Required: No Accompanied by: Self / Same As Patient Allergies dimethyl fumarate (From Tecfidera) Allergy (Mild, Verified 02/18/25 11:01) Hives copaxel Allergy (Mild, Uncoded 07/11/24 11:29) Hives Medication List - Last Reconciled 02/18/25 by DUY Up albuterol sulfate 90 mcg/actuation (ProAir HFA) 2 puffs inhalation QID ergocalciferol (vitamin D2) 1,250 mcg PO QWEEK fremanezumab-vfrm (Ajovy) 675 mg (4.5 mL) subcut [id number] 90 days magnesium oxide 400 mg PO BEDTIME 30 days tirzepatide (weight loss) (Zepbound) 2.5 mg subcut QWEEK tramadol 100 mg (2 x 50 mg) PO TID PRN 30 days HPI Comments Details: 40-yr-old female presents for f/u visit of migraine, pain/spasticity in setting of MS, lumbar neuroforaminal stenosis. PMH notable for NICK on CPAP, anemia, fibromyalgia. Patient denies any specific interval medical history changes. She states she missed her last appointment with the [facility]-as she had to bring her daughter to [place] for an appointment. She states she will call them today to set up a follow-up appointment, as she is due for her follow-up MRI to monitor MS progression. She states that she is having increased pain throughout her body from her neck down through her back and lower extremities, more so on the right. She notes that since October, she has not been receiving the full prescription of tramadol, now receiving 90 tabs per 30 days as opposed to the previous 180 tabs per 30 days.? This has significantly worsened her pain control. She continues to have leg spasms and cramps. Reports her right-sided numbness and weakness are more pronounced. She notes that many of her symptoms have been worse since she gained weight, though she has started Zepbound therapy, which is starting to help her lose some weight. However, she notes that the pain, weakness, and weight gain have caused her to fall and have made it more difficult to perform her ADLs and household tasks. For instance, she can no longer bend down to tie her shoes, she has fallen behind in her housework, and is behind in doing laundry for herself and her children due to living on the 2nd floor, and the washer and dryer are in the basement (as she can not independently carry the laundry to and from the basement). She is considering moving to a housing complex that can accommodate her medical/physical conditions. She has resumed taking Ajovy for migraine prevention. She states that on the Ajovy, she is having significantly fewer headaches, which are not as severe and are more responsive to her as-needed treatment. Baseline headache characteristics: a bifrontal and eye pain a/w seeing sparkles at times, photophobia, phonophobia, nausea, and activity intolerance. She needs to lie down during the migraine attacks. 08/14/2024, Previous HPI: She is still f/b the [facility]- states her MS is stable on her current DMT. Denies any clear signs of MS relapse, though has good days and bad days where she may have exacerbation blurry vision or weakness. She states her daughters are undergoing evaluation for pediatric MS. She states she is due for for f/u MRI. Since last visit, patient underwent: 05/10/2024 L-spine MRI without contrast showed L5-S1 diffuse disc bulge and bilateral facet arthrosis resulting in mild to moderate left and mild right neuroforaminal narrowing with the disc abutting the exiting L5 nerve roots bilaterally without significant spinal canal stenosis. L4-5 bilateral facet arthrosis without significant spinal canal or foraminal narrowing. 07/25/2024, bilateral upper and lower extremity EMG/NCS, which was normal. She did have recent physiatry consult, who felt that her symptoms were likely consistent with fibromyalgia, and suggested patient had follow-up with pain management. She continues to have constant pain from her neck down through her whole body. Pt states she never heard from [facility] to have f/u visit. She states her pain and fatigue can limit her ability to do her daily activities. Sometimes she can grab things, but other days she needs to use 2 hands to hold a cup. She can have swelling in her neck, arms, ankles. Has RUE muscle twitching. Has chronic low back pain is increasing as well- sometimes the pain is focal to the low back, other times radiates into the RLE. She continues to have leg spasms and more nocturnal leg cramps at night- since the weight gain. Her right sided weakness varies day to day. She states the Tramadol anymore.. Since last visit, patient had not been able to take her Ajovy due to need for new Prior authorization, and thus had a increase in her migraine attacks, which again were occurring daily. She resumed Ajovy last week, feels that it is starting to help already. Baseline headache characteristics: a bifrontal and eye pain a/w seeing sparkles at times, photophobia, phonophobia, nausea, activity intolerance. She needs to lay down during the migraine attacks. Previous work-up: L-spine MRI w/o, 04/15/22 at [facility]: Worsened moderate endplate edema with disc degeneration at the L5-S1 level. Broad-based disc bulge with moderate foraminal encroachment mildly distorting the exiting L5 nerve roots, more so on the right side. No central canal stenosis. 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 Physical Exam Vital Signs: Last Vital Signs Pulse 80 02/18/25 11:01 BP 130/88 02/18/25 11:01 Pulse Ox 97 02/18/25 11:01 Oxygen Delivery Method Room Air 02/18/25 11:01 BMI result Body Mass Index 38.7 Const General: cooperative and no acute distress Orientation/consciousness: patient oriented x3 Resp Effort & Inspection: normal respiratory effort and able to speak in complete sentences Neuro Other: Shoe laces of sneakers- untied, loosely tucked into sides of shoes BUE MS 5/5, RLE MS 5-/5 LLE MS 5/5 Gait- slightly antalgic General: patient oriented x3 Cranial nerves: Yes CN's II-XII intact bilaterally Cognition (Neuro): normal cognition Deep tendon reflexes (DTR's): Right patellar reflex intensity grade: 2+ and Left patellar reflex intensity grade: 2+ Psych Appearance: grossly normal Mental Status: mental status grossly normal Speech and movement: Normal speech and movement present Affect: normal affect Attitude: cooperative Assessment & Plan Assessment & Plan (1) Migraine without aura: Code(s): G43.009 - Migraine without aura, not intractable, without status migrainosus Category: Medical Qualifiers: Status migrainosus presence: without status migrainosus Intractability: not intractable Qualified Code(s): G43.009 - Migraine without aura, not intractable, without status migrainosus (2) Neuroforaminal stenosis of lumbar spine: Code(s): M48.061 - Spinal stenosis, lumbar region without neurogenic claudication Category: Medical (3) Cervicalgia: Code(s): M54.2 - Cervicalgia Category: Medical (4) Paresthesia of right upper and lower extremity: Code(s): R20.2 - Paresthesia of skin Category: Medical (5) Low back pain: Code(s): M54.50 - Low back pain, unspecified Category: Medical Qualifiers: Chronicity: chronic Back pain laterality: right Sciatica presence: with sciatica Sciatica laterality: sciatica of right side Qualified Code(s): M54.41 - Lumbago with sciatica, right side; G89.29 - Other chronic pain (6) Multiple sclerosis: Code(s): G35 - Multiple sclerosis Category: Medical Plan For acute migraine treatment: * Continue Fioricet 1 cap every 4 hours as needed, max 2 caps per day or 4 caps per week. * Continue Sumatriptan 50-100mg at onset of migraine, may repeat in 2 hours, max 4 tabs per week. ? For migraine prevention treatment: * Continue Ajovy 225mg qc q month, * She has previously tried: Gabapentin (d/c'd 03/03/2017), Amitriptyline (caused sleepiness, d/c'd 02/03/17), Topiramate (d/c'd 03/24/17)- all were ineffective. * Migraine preventive tx contraindications: All BBs d/t dx of asthma. ? For low back pain w/ RLE paresthesias, neck pain, muscle cramps/spasms, fibromyalgia, body pains, weakness in setting of MS and h/o positive TAMARA.: BUE and BLE EMG/NCS- normal F/u L-spine MRI w/o- stable * May continue prn Tramadol 50mg- 2 tabs tid for now. We will check with patient's pharmacy determine why they are billing this order at a lower quantity than prescribed. * Continue Magnesium 400mg qhs. * Baclofen 5-10mg qhs scheduled. Advised to try no-tie shoelaces. PT eval and treat for greer spine pain, and assistive device evaluation- patient may benefit from using a cane. At this point, patient would benefit from home health aide services. Advised that these usually must be requested through her PCP office. Rheumatology consult for evaluation of positive TAMARA- as scheduled Follow-up with physiatry as scheduled Advised to contact the [facility]- to reschedule her follow-up appointment. Will follow-up upon review of above and patient to follow-up in clinic in 6 months or sooner prn. Orders: Orders PT Evaluation and Treatment Today G35 - Multiple sclerosis, M48.061 - Spinal stenosis, lumbar region without neurogenic claudication, M54.2 - Cervicalgia Medications: New sumatriptan succinate 50 - 100 mg (0.5 - 1 x 100 mg) PO Q2H PRN 12 tabs 6RF migraine headache 30 days MDD 2 tabs Refilled baclofen 5 - 10 mg (1 - 2 x 5 mg) PO BID 120 tabs 3RF 30 days tramadol 100 mg (2 x 50 mg) PO TID PRN 180 tabs 3RF pain 30 days G35 - Multiple sclerosis, M48.061 - Spinal stenosis, lumbar region without neurogenic claudication [id number]-ezkwfqlebskmz-jetz 50-325-40 mg 1 cap at onset of headache, may repeat in 4 hours (max 2 tabs per day or 4 tabs per week) 1 cap PO Q4H PRN 10 caps 3RF pain 30 days Coding Level of Care Code Est Pt Level 4 (60025) Diagnoses Migraine without aura and without status migrainosus, not intractable G43.009 Status migrainosus presence: without status migrainosus Intractability: not intractable Neuroforaminal stenosis of lumbar spine M48.061 Cervicalgia M54.2 Paresthesia of right upper and lower extremity R20.2 Chronic right-sided low back pain with right-sided sciatica M54.41; G89.29 Chronicity: chronic Back pain laterality: right Sciatica presence: with sciatica Sciatica laterality: sciatica of right side Multiple sclerosis G35
[2025-02-18 11:01] VITALS: BP 130/88; PULSE 80; O2SAT 97; BMI 38.7
--- OUTSIDE RECORDS SUMMARY | 2025-02-18 11:56 | XMS_ITS | Clinical Summary ---
Author Organization [address] [place] [address] [place] [phone] Phone Care Team Providers Care Ob/Gyn Doctor Name Role Phone Ria Mejía MD Primary [...] by mouth 1 (one) time per week. 11/23/19 24 Active fremanezumab-vf rm (Ajovy Autoinjector) 225 mg/1.5 mL auto-injector Inject under the skin. Active traMADoL (ULTRAM) 50 mg tablet Take 50 mg by mouth continuous prn for pain. Active LORazepam (ATIVAN) 0.5 mg tablet Si p.o. 1 hour prior to MRI, may repeat 1 at time of MRI if needed Active simethicone (MYLICON) 80 mg chewable tablet Chew 1 tablet (80 mg total) every 6 (six) hours if needed (gas & bloating). 120 tablet 01/03/20 25 Active tirzepatide, weight loss, (Zepbound) 7.5 mg/0.5 mL injectionIndica tions:Class 2 obesity due to excess calories without serious comorbidity with body mass index (BMI) of 39.0 to 39.9 in adult INJECT 0.5 ML UNDER THE SKIN EVERY 7 DAYS. 2 mL 02/12/20 25 Active tirzepatide, weight loss, (Zepbound) 7.5 mg/0.5 mL injectionIndica tions:Class 2 obesity due to excess calories without serious comorbidity with body mass index (BMI) of 39.0 to 39.9 in adult Inject 0.5 mL (7.5 mg total) under the skin every 7 (seven) days. 2 mL 01/03/20 25 025 Discontinued Active Problems Problem Noted Date Diagnosed Date Class 2 obesity due to exces s calories without serious comorbidity with body mass index (BMI) of 39.0 to 39.9 in adult 10/22/2024 Fibromyalgia 02/21/2021 Encounters Date Type Department Care Team Description 01/02/2025 11:15 AM EDT Office Visit Bariatric Surgery [address] [phone] Shiloh Ziegler PA Class 2 obesity due to excess calories without serious comorbidity with body mass index (BMI) of 39.0 to 39.9 in adult (Primary Dx) 12/17/2024 Telephone Bariatric Surgery [address] [phone] Shiloh Ziegler PA 11/19/2024 Telephone Bariatric Surgery [address] [phone] Shiloh Ziegler PA from Last 3 Months Medical History Medical History Date Comments MS (multiple sclerosis) ([facility] V24, [facility] V28) DX:MS (multiple sclerosis) ( [facility]) Family History Medical History Relation Name Comments [...] Sign Reading Time Taken Comments Blood Pressure 152/99 01/02/2025 11:13 AM EDT Pulse 89 01/02/2025 11:13 AM EDT Temperature 35.9 C (96.7 F) 05/16/2024 11:53 AM EST Respiratory Rate - - Oxygen Saturation 97% 05/16/2024 11:53 AM EST Inhaled Oxygen Concentration - - Weight 106 kg (232 lb 12.8 oz) 01/02/2025 11:13 AM EDT Height 162.6 cm (5' 4 ) 01/02/2025 11:13 AM EDT Body Mass Index 39.96 01/02/2025 11:13 AM EDT Plan of Treatment Upcoming Encounters Date Type Department Care Team (Late st Contact Info) Description 02/27/2025 10:45 AM EDT Office Visit Bariatric Surgery - [address] [place] [address] Shiloh Ziegler, MASSIMO [address] [place] [phone] Health Maintenance Due Date Last Done Comments Hepatitis B Vaccines (1 of 3 - 19+ 3-dose series) 2005 Pneumococcal Vaccine: Pediatrics (0 to 5 Years) and At-Risk Patients (6 to 49 Years) (1 of 2 - PCV) 2005 Cervical Cancer Screening: P ap Smear 2007 HPV Vaccines (3 - 3-dose series) 02/22/2010 11/30/2009, 05/25/2009 Cholesterol Screening (Lipid Panel) 06/03/2022 HIV Screening 06/03/2022 Hepatitis C Screening 06/03/2022 Social Influencers of Health Screening 06/03/2022 COVID-19 Vaccine (1 - 2023-2 5 season) 2024 Hypertension/CHF/CAD Annual BMP Blood Test 05/16/2024 Depression Screening 06/26/2024 Influenza Vaccine (#1) 2025 9, 03/27/2017, 08/23/2011 DTaP,Tdap,and Td Vaccines (4 - Td or [...] age to complete this topic Meningococcal B Vaccine Aged Out No l onger eligible based on patient's age to complete this topic RSV Immunization Patients Under 20 months Aged Out No longer eligible b ased on patient's age to complete this topic Varicella Vaccines Aged Out No longer eligible based on patient's age to complete this topic Insurance [employer] [place] [id number] Care Teams Ob/Gyn Doctor Relationship Specialty Start Date End Date Ria Mejía MD [address] [place] [id number] PCP - General 12/27/23
--- OUTSIDE RECORDS SUMMARY | 2025-02-18 11:56 | XMS_ITS | Clinical Summary ---
Author Organization [facility] Address [address] [place] [address] Phone Care Team Providers Care Gun Profiler Name Role Phone Unavailable Primary Care Provider Unavailabl e Social History Tobacco Use Types Packs/Day Years Used Date Smoking Tobacco: Never Assessed Comments Unknown Sex and Gender Information Value Date Recorded Sex Assigned at Not on file Legal Sex Female 6:17 AM EDT Gender Identity Not on file Sexual Orientation Not on file Plan of Treatment Health Maintenance Due Date Last Done Comments HIV Screening 1986 MMR Vaccines (1 of 1 - Stand felipa series) 1987 DTaP/Tdap/Td Vaccines (1 - Tdap) 1993 Varicella Vaccines (1 of 2 - 13+ 2-dose series) 1999 Hepatitis C Screening 02/01/2004 Hepatitis B Vaccines (1 of 3 - 19+ 3-dose series) 2005 HPV Vaccines (1 - 3-dose SCD M series) 2013 COVID-19 Vaccine (2023-2 5 season) 2024 Influenza Vaccine (#1) 2025 HIB Vaccines Aged Out No longer eligi [...] patient's age to complete this topic Meningococcal Vaccine Aged Out No osiel catracho eligible based on patient's age to complete this topic Pneumococcal Vaccine: Pediat rics (0 to 5 Years) and At-Risk Patients (6 to 49 Years) Aged Out No longer eligible b ased on patient's age to complete this topic Rotavirus Vaccines Aged Out No longer eligible based on patient's age to complete this topic
--- OUTSIDE RECORDS SUMMARY | 2025-02-18 11:56 | XMS_ITS | Clinical Summary ---
Author Organization [facility] Address [address] [place] [address] Care Team Providers Care Social Security Benefits Interviewer Name Role Phone Chandrakant Glez Primary Care Provider [phone] Allergies Active Allergy Reactions Criticality Noted Date [...] 0 01/25/2024 Active ergocalciferol (VITAMIN D2) capsule 12319 units TAKE 1 CAPSULE BY MOUTH ONE [...] 79 01/23/2024 3:04 PM EDT Temperature 35.9 C (96.7 F) 01/23/2024 3:04 PM EDT Respiratory Rate 16 01/17/2023 1:35 PM EDT [...] Screening (Pap Smear) 2007 Influenza Vaccine (#1) 2025 9, 03/27/2017, 03/27/2017, Additional history exists DTap / Tdap / Td (4 - Td or Tdap) 02/12/2029 02/12/2019, 08/08/2017, 04/12/2012 RSV Ped < 20 months Aged Out No longe r eligible based on patient's age to complete this topic Care Teams Social Security Benefits Interviewer Relationship Specialty Start Date End Date Chandrakant Glez [address] [place] [phone] PCP - General Family Medicine 05/13/21
== END 2025-02-18 12:17 | disposition home or self-care (01) ==
LOC: HO.HSMS 11:00
PROVIDERS: Visit Provider Nurse Practitioner Family
DX: G43.009 Migraine without aura, not intractable, without status migrainosus (principal); M48.061 Spinal stenosis, lumbar region without neurogenic claudication; M54.2 Cervicalgia; R20.2 Paresthesia of skin; M54.41 Lumbago with sciatica, right side; G89.29 Other chronic pain; G35 Multiple sclerosis
CPT/HCPCS: 99214

== ENCOUNTER → 2025-02-18 10:59 | Outpatient (BNVA) | payer OTHER, SELFPAY | PROVIDERS: Visit Provider Nurse Practitioner Family | DX: G43.009 Migraine without aura, not intractable, without status migrainosus (principal); M48.061 Spinal stenosis, lumbar region without neurogenic claudication; R20.2 Paresthesia of skin; M54.41 Lumbago with sciatica, right side; G89.29 Other chronic pain | CPT/HCPCS: 99212 ==

== ENCOUNTER 2025-04-02 10:53 | Outpatient (REF) | payer OTHER, SELFPAY ==
[2025-04-02 18:26] LABS: MANUAL DIFF FLAG NO
[2025-04-02 18:30] LABS: Appearance Urine Clear; Glucose Urine UA Negative (Negative); PH 7.0 (5.0-9.0); Specific Gravity - Urine 1.025 (1.005-1.025); UMIC TRIGGER UACC YES
[2025-04-02 18:34] LABS: Hematocrit 44.2 % (37.0-47.0); Hemoglobin 14.0 g/dl (12.0-16.0); Imm Gran Abs Auto 0.02 X10*3/uL (0.00-0.03); Imm Gran Pct Auto 0.3 % (0.0-0.4); Lymphocytes Absolute Auto 1.3 X10*3/uL (1.2-4.9); Mean Corpuscular HGB Conc 31.7 g/dl (31.0-35.0); Mean Corpuscular Hemoglobin 30.8 pg (27.0-33.0); Mean Corpuscular Volume 97.1 fL (80.0-98.0); NRBC Abs Auto 0.000 X10*3/uL (0.0-0.012); NRBC Pct Auto 0.0 /100WBC (0.0-0.2); Platelet Count 196 X10*3/uL (160-400); Red Blood Count 4.55 X10*6/uL (4.20-5.50); White Blood Count 5.9 X10*3/uL (4.8-10.8)
[2025-04-02 18:59] LABS: Alanine Aminotransferase 67 U/L (0-31); Albumin Level 4.5 g/dL (3.5-5.0); Alkaline Phosphatase 85 U/L (39-117); Anion Gap 10 (12-20); Aspartate Amino Transferase 29 U/L (5-31); Blood Urea Nitrogen 14 mg/dL (9-16); Calcium 9.7 mg/dL (8.4-10.2); Carbon Dioxide 29 mmol/L (22-29); Chloride 105 mmol/L (96-108); Estimated Glomerular Filt Rate > 60; Potassium 4.0 mmol/L (3.3-5.1); Sodium 140 mmol/L (135-145); Total Protein 7.6 g/dL (6.5-8.0)
[2025-04-02 19:12] LABS: Protein/Creatinine Ratio, Ur 0.06 (<0.2); Total Protein Urine Random 8 mg/dL (<12)
[2025-04-03 16:39] LABS: Antibody to SS-A Antigen <1.0 NEG AI (<1.0 NEG); Antibody to SS-B Antigen <1.0 NEG AI (<1.0 NEG); SM/Ribonucleoprotein Ab <1.0 NEG AI (<1.0 NEG); Smith Protein <1.0 NEG AI (<1.0 NEG)
== END 2025-04-02 10:54 | disposition home or self-care (01) ==
LOC: HO.HKASLDS 10:53
PROVIDERS: PCP Nurse Practitioner Family; Visit Provider Student in an Organized Health Care Education/Training Program
DX: R76.89 Other specified abnormal immunological findings in serum (principal); R76.0 Raised antibody titer; Z79.899 Other long term (current) drug therapy
CPT/HCPCS: 36415; 80053; 81001; 82570; 84156; 85025; 85652; 86140; 86160; 86225; 86235; 99202

== ENCOUNTER 2025-04-02 10:53 | Outpatient (AMB) | payer OTHER, SELFPAY ==
--- NOTE | 2025-04-02 11:02 | A.OFFVIS_ITS ---
Vital Signs 04/02/25 11:08 Height 5 ft 4 in Weight 220 lb 14.451 oz BMI 37.9 BP 142/80 H Blood Pressure Location Lt brachial Position Sitting Pulse 84 Pulse Source Pulse Oximeter Pulse Oximetry (%) 99 Oxygen Delivery Method Room Air Intake Visit Reasons: abnormal labs Intake Note: New patient presents for abnormal labs. Patient c/o pain all over her body. Allergies dimethyl fumarate (From [employer]) Allergy (Mild, Verified 04/02/25 11:08) Hives copaxel Allergy (Mild, Uncoded 07/11/24 11:29) Hives HPI Comments Details: Patient is a 40-year-old with a history of multiple sclerosis here today for evaluation positive TAMARA in the setting of paresthesias Patient states that she was diagnosed with multiple sclerosis over 18 years ago and currently follows up with the [facility] She has long experienced paresthesias and muscle twitches as well as muscle tension for several years but has noticed over the past year that this has gotten worse. In working up this disease she had her TAMARA checked and it was elevated Denies rashes, photosensitivity, alopecia, oral/nasal ulcers, sicca symptoms, lymphadenopathy, chest pain/shortness of breath, inflammatory type joint pain, foamy urine, lower extremity edema, muscle weakness, Raynaud's. She does note that the middle of her hands change color when it is cold but not the tips of her fingers. Also denies history of seizure, CVA, psychosis, history of kidney problems, history of cytopenias, history of VTE including PE or DVTs [facility] Medical History Anemia Vitamin D deficiency Hypothyroidism Asthma Kidney stones HTN (hypertension) Fibromyalgia Multiple sclerosis Surgical History No pertinent past surgical history Family History Father HTN (hypertension) Kidney disease Arthritis Mother HTN (hypertension) Kidney disease Arthritis Fibromyalgia Social History Alcohol intake: current Alcohol intake frequency: other Patient Tobacco Use Status: Former Tobacco user Cigarettes Per Day: 3 e-Cigarette/Vaping Use: Currently Using Current occupational status: disabled 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 Review of Systems Const Details: Review of Systems Constitutional: Denies fever, chills, weight loss ENT: Denies vision changes, eye pain or eye redness, dental caries, dry mouth GI: Denies nausea, vomiting, diarrhea, abdominal pain, change in BM Pulm: Denies SOB, PURDY, hemoptysis, wheezing Cards: Denies chest pain, palpitations Skin: Denies Raynaud's, rash, nail changes, photosensitivity, [employer] EXP[employer]ER: Denies headaches, weakness, paresthesias, recurrent falls MSK: as per HPI All other systems reviewed and are unremarkable except noted above Physical Exam Exam Exam: Vital signs reviewed Physical Examination CONSTITUITIONAL Patient alert and cooperative. Well appearing and in no apparent painful distress MSK Hands * Right Hand: Able to make a fist. No swelling or tenderness to palpation of the MCPs, PIPs or DIPs. No deformities noted. * Left Hand: Able to make a fist. No swelling or tenderness to palpation of the MCPs, PIPs or DIPs. No deformities noted. Wrists * Right Wrist: Full ROM to flexion and extension. No swelling or TTP * Left Wrist: Full ROM to flexion and extension. No swelling or TTP Elbows * Right Elbow: Full ROM. No swelling or TTP. No TTP of the medial epicondyle. No TTP of the lateral epicondyle * Left Elbow: Full ROM. No swelling or TTP. No TTP of the medial epicondyle. No TTP of the lateral epicondyle Shoulders * Right shoulder: No swelling noted. No TTP of the AC joint. No TTP of the subacromial bursa. No TTP of the posterior shoulder * Left shoulder: No swelling noted. No TTP of the AC joint. No TTP of the subacromial bursa. No TTP of the posterior shoulder Knees * Right knee: Full ROM. No swelling noted. No TTP of the knee joint line. No TTP of pes anserine bursa * Left knee: Full ROM. No swelling noted. No TTP of the knee joint line. No TTP of pes anserine bursa. Ankles * Right ankle: Good ankle dorsiflexion and plantar flexion. No swelling. No TTP of the ankle joint * Left ankle: Good ankle dorsiflexion and plantar flexion. No swelling. No TTP of the ankle joint Feet * Right foot: Negative squeeze test * Left foot: Negative squeeze test Tender points? * Tenderness to palpation of the bilateral trapezius, supraspinatus, anterior costochondral junctions, bilateral suboccipital muscle insertions SKIN No rashes Vital Signs: Last Vital Signs Pulse 84 04/02/25 11:08 BP 142/80 H 04/02/25 11:08 Pulse Ox 99 04/02/25 11:08 Oxygen Delivery Method Room Air 04/02/25 11:08 BMI result Body Mass Index 37.9 Results Reviewed Results Reviewed: Laboratory Tests 04/02/25 12:14 WBC 5.9 RBC 4.55 Hgb 14.0 Hct 44.2 Plt Count 196 ESR 11 Sodium 140 Potassium 4.0 Chloride 105 Carbon Dioxide 29 BUN 14 Creatinine 0.74 AST 29 ALT 67 H C-Reactive Protein 0.68 H Laboratory Tests 04/02/25 12:14 Urine Color Yellow Urine Protein Negative Urine Glucose (UA) Negative Urine Ketones Negative Urine RBC 11-20 H Assessment & Plan Assessment & Plan (1) TAMARA positive: Code(s): R76.8 - Other specified abnormal immunological findings in serum Category: Medical Plan: #Positive TAMARA Patient is a 40-year-old female with a history of multiple sclerosis here today for evaluation of positive TAMARA. The presence of antinuclear antibodies (TAMARA) is mainly associated with connective tissue diseases (CTD). ?However, their presence is found in healthy people especially in women and patients >65. ?In healthy individuals, the frequency of TAMARA has been shown to be 31.7% of individuals at 1:40 serum dilution, 13.3% at 1:80, 5.0% at 1:160, and 3.3% at 1:320 (2). Some drugs and xenobiotics are also important for the development of TAMARA (hydralazine, hydrochlorothiazide, minocycline, terbinafine, ciprofloxacin, furosemide, omeprazole). Moreover, the deficiency of vitamin D in the body of patients correlates with occurrence of these antibodies (1). We will check sub serologies Low suspicion of connective tissue disease at this time 1. Zainab Plummer, Lanny Rosales, Ruth Cornelius. Antinuclear antibodies in healthy people and non-rheumatic diseases - diagnostic and clinical implic ations. Reumatologia. 2018;56(4):243-248. doi: [email or web address]/reum.[email or web address]. Epub 2017Feb 23. PMID: [id number]; PMCID: [id number]. 2. Rosas EM, Any TE, Rudy JS, Usha B, Mary R, Blanca MJ, Jose Daniel T, Ashwini JA, Lee JR, Gabe RG, Shakila RN, Sonia JS, Sea NF, Patricio RJ, Taksymone Y, Kelli A, Alexy MR, Bere JA. Range of antinuclear antibodies in healthy individuals. Arthritis Rheum. 1996;40(9):1601-11. doi: 10.1002/art.[id number]. PMID: [id number]. Plan I spent 45 minutes reviewing the record and labs, taking a history, examining the patient, discussing the treatment plan, ordering diagnostic work up and documenting in the medical record Orders: Orders UA ClnCatch+Micro w/rflx Cult 04/02/25 R76.0 - Raised antibody titer C Reactive Protein 04/02/25 R76.0 - Raised antibody titer Anti DNA DS Antibody 04/02/25 R76.0 - Raised antibody titer Complement C3 04/02/25 R76.0 - Raised antibody titer Sm Sm/[employer]GE Antibodies 04/02/25 R76.0 - Raised antibody titer Complement C4 04/02/25 R76.0 - Raised antibody titer Comprehensive Met. Panel 04/02/25 Z79.899 - Other senior living (current) drug therapy Complete Blood Count Auto Diff 04/02/25 R76.0 - Raised antibody titer Protein Creatinine Ratio, Ur 04/02/25 R76.0 - Raised antibody titer Erythrocyte Sedimentation Rate 04/02/25 R76.0 - Raised antibody titer Sjogren's Antibodies 04/02/25 R76.0 - Raised antibody titer Coding Level of Care Code New Pt Level 4 (21038) Diagnoses TAMARA positive R76.8
[2025-04-02 11:08] VITALS: BP 142/80; PULSE 84; O2SAT 99; BMI 37.9
== END 2025-04-02 11:50 | disposition home or self-care (01) ==
LOC: HO.RHES 10:54
PROVIDERS: PCP Nurse Practitioner Family; Visit Provider Student in an Organized Health Care Education/Training Program
DX: R76.0 Raised antibody titer (principal)
CPT/HCPCS: 99204